=== PATIENT | male | born 1960 | race Caucasian/White ===

== ENCOUNTER 2016-06-16 20:31 | Emergency (ER) | payer BC ==
[2016-06-16] MEDS ORDERED: Diph,Pert(Acell),Tet Vac 0.5 ML SYR IM ONE (20:53)
[2016-06-16] MEDS ORDERED: AMOXICILLIN/POTASSIUM CLAV 875MG/125MG TABLET PO ONE (20:59)
--- NOTE | 2016-06-16 20:59 | Emergency Department Record ---
History of Present Illness - General Chief Complaint: Animal Bite Stated Complaint: DOG BITE Time Seen by Provider: 06/16/16 20:52 Source: Patient Mode of Arrival: Ambulatory Limitations: No limitations - History of Present Illness Initial Comments: 55 yo male presents to ED with a CC of a dog bite to the left forearm after attempting to separate tow dogs at home. Patient reports injury to the left forearm alone, denies other injury. Patient reports that dog's immunizations are UTD. Patient denies health problems at his baseline, reports tetanus is not currently UTD. Patient denies foreign collection clerk strength/thumb/finger weakness on examination. MD Complaint: Animal bite Onset/Timin -: Minutes(s) Left: Forearm Animal: Dog Description: Household pet Mechanism: Bite Context: Animals fighting Associated Symptoms: None - Related Data Patient Tetanus UTD (within 5 yrs): No Home Medications Medication Instructions Recorded Confirmed Last Taken Oxycodone HCl/Acetaminophen 1 tab PO Q4HR PRN 08/04/14 06/16/16 06/16/16 [Oxycodone-Acetaminophen 10-325] Oxycodone HCl [Roxicodone] 30 mg PO DAILY 03/22/16 06/16/16 06/16/16 Sertraline HCl [Zoloft] 40 mg PO DAILY 04/15/16 06/16/16 06/16/16 Previous Rx's Medication Instructions Recorded Amoxicillin/Potassium Clav 1 tab PO BID #19 tab 06/16/16 [Augmentin 875-125 Tablet] Allergies Allergy/AdvReac Type Severity Reaction Status Date / Time No Known Drug Allergies Allergy Verified 08/04/14 03:02 Travel Screening - Travel/Exposure Within Last 30 Days Have you traveled within the last 30 days?: No - Travel Symptoms Symptom Screening: None Review of Systems Constitutional: Denies: Chills, Fever, Malaise, Night sweats Eyes: Denies: Eye discharge, Eye pain, Photophobia ENT: Denies: Congestion, Ear pain, Epistaxis Respiratory: Denies: Cough, Dyspnea Cardiovascular: Denies: Chest pain, Dyspnea on exertion, Palpitations Endocrine: Denies: Fatigue, Heat or cold intolerance Gastrointestinal: Denies: Abdominal pain, Nausea, Vomiting Genitourinary: Denies: Hematuria, Incontinence Musculoskeletal: Denies: Arthralgia, Back pain Skin: Reports: Other (laceration left forearm). Denies: Bruising, Change in color, Change in hair/nails Neurological: Denies: Abnormal gait, Confusion, Headache, Seizure Psychiatric: Denies: Anxiety Hematological/Lymphatic: Denies: Anemia, Blood Clots Past Medical History - SOCIAL HISTORY Smoking Status: Never smoker - RESPIRATORY Hx Respiratory Disorders: No - CARDIOVASCULAR Hx Cardio Disorders: Yes Hx Cardiac Cath: Yes Hx Irregular Heartbeat: Yes (Bigeminy) - NEURO Hx Neuro Disorders: No - GI Hx GI Disorders: Yes Hx Reflux: Yes Comment:: Barretts Esophagus - Hx Genitourinary Disorders: No - ENDOCRINE Hx Endocrine Disorders: No - MUSCULOSKELETAL Hx Musculoskeletal Disorders: Yes Hx Musculoskeletal Disease: (L knee-current torn meniscus) Comment:: Degenerative Discs, Bulging Discs, Annular Tear - PSYCH Hx Psych Problems: Yes Hx Anxiety: Yes - HEMATOLOGY/ONCOLOGY Hx Hematology/Oncology Disorders: No Family Medical History Any Significant Family History?: Yes Hx Cancer: Grandparents Physical Exam - General General Appearance: Alert, Oriented x3, Cooperative, No acute distress Limitations: No limitations - Head Head exam: Atraumatic, Normocephalic, Normal inspection Head exam detail: negative: Abrasion, Contusion, Galicia's sign, General tenderness, Hematoma, Laceration - Eye Eye exam: Normal appearance. negative: Conjunctival injection, Periorbital swelling, Periorbital tenderness, Scleral icterus - ENT Ear exam: negative: Auricular hematoma, Auricular trauma Nasal Exam: negative: Active bleeding, Discharge, Dried blood, Foreign body Mouth exam: negative: Drooling, Laceration, Muffled voice, Tongue elevation - Neck Neck exam: Normal inspection. negative: Meningismus, Tenderness - Respiratory Respiratory exam: Normal lung sounds bilaterally. negative: Respiratory distress, Rhonchi, Stridor, Wheezes - Cardiovascular Cardiovascular Exam: Regular rate, Normal rhythm, Normal heart sounds - GI/Abdominal GI/Abdominal exam: Soft. negative: Rebound, Rigid, Tenderness - Rectal Rectal exam: Deferred - exam: Deferred - Extremities Extremities exam: Other (2.5 cm laceration to the lateral left forearm, no tendon injury is visible, foreign collection clerk strength 5/5, thumb FROM without weakness on examination). negative: Calf tenderness, Pedal edema - Back Back exam: Denies: CVA tenderness (R), CVA tenderness (L) - Neurological Neurological exam: Alert, Normal gait, Oriented X3. negative: Motor sensory deficit - Psychiatric Psychiatric exam: Normal affect, Normal mood - Skin Skin exam: Normal color. negative: Abrasion Type of lesion: negative: abrasion Course Vital Signs 06/16/16 20:45 Temperature 99.1 F Pulse Rate 99 H Respiratory 18 Rate Blood Pressure 178/110 Pulse Ox 94 L - Reevaluation(s) Reevaluation #1: 06/16/16 21:00 Procedure Note: Wound was anesthetized with 4 mL 1% Lidocaine with epi with good anesthesia, wound was irrigated extensively with 1000 mL sterile saltine under jet irrigation. No FB's were identified on examination of the wound, wound was closed with (4) 4-0 Prolene sutures using interrupted fashion. Ends were left loose given the mechanism of injury and chance of infection. Patient tolerated the procedure well without complications. Patient was counseled extensively on symptoms to return to ED for including redness, swelling, discharge, fever, or increased pain symptoms. Left Forearm X-ray: No radio-opaque FBs present, no fractures present. 06/16/16 21:40 Disposition Disposition: Discharge Clinical Impression: Dog bite of forearm Qualifiers: Encounter type: initial encounter Laterality: left Qualified Code(s): S51.852A - Open bite of left forearm, initial encounter Instructions: Animal Bite (ED) Additional Instructions: Return to ED if your symptoms worsen or if you have any concerns. Augmentin as directed. Follow-up with your family doctor in 3-5 days as directed Sutures out in 10 14 days. Prescriptions: Amoxicillin/Potassium Clav [Augmentin 875-125 Tablet] 1 tab PO BID #19 tab Forms: Patient Portal Access Time of Disposition: 20:59
--- NOTE | 2016-06-19 13:28 | RADIOLOGY REPORT ---
EXAM: LEFT FOREARM HISTORY: DOG BITE. TECHNIQUE: Three views of the left forearm were obtained. Comparison: None. Encounter: Initial. FINDINGS: Soft tissue injury of the proximal lateral aspect of the forearm and elbow. Linear moncho are noted along the proximal medial aspect of the forearm presumably relating to old surgery. No other evidence for radiopaque foreign body. No acute osseous abnormality. IMPRESSION: 1. SOFT TISSUE INJURY IN THE PROXIMAL LATERAL ASPECT OF THE FOREARM. NO ADJACENT OSSEOUS ABNORMALITY. 2. LINEAR METALLIC MONCHO OF THE PROXIMAL MEDIAL FOREARM PRESUMABLY RELATE TO PRIOR SURGERY. JOB NUMBER: [id number] [facility]
== END 2016-06-16 22:07 | disposition home or self-care (01) ==
LOC: ER 20:31
DX: S51.852A Open bite of left forearm, initial encounter (principal); W54.0XXA Bitten by dog, initial encounter; Y92.009 Unspecified place in unspecified non-institutional (private) residence as the place of occurrence of the external cause
CPT/HCPCS: 12001; 90715; 96372; 99283; 99284

== ENCOUNTER 2016-09-02 07:57 | Day surgery (SDC) | payer BC ==
--- NOTE | 2016-09-02 07:07 | History and Physical Report ---
CHIEF COMPLAINT/HISTORY OF CHIEF COMPLAINT: This patient presents with a history of intractable lumbar radiculitis. Due to the failure of all therapies he is here for a spinal opioid infusion trial to determine if the implantation of a permanent system can be of any value in his pain control. PAST MEDICAL HISTORY: Noncontributory. PAST SURGICAL HISTORY: None identified. MEDICATIONS ON ADMISSION: List to be provided. ALLERGIES: None. SOCIAL HISTORY: Caffeine. FAMILY HISTORY: Coronary artery disease. SYSTEMS REVIEW: The patient seems appropriate in no acute distress. The remainder of the systems review is noncontributory. PHYSICAL EXAMINATION: Height is 5'11", weight is 180. No vital signs. HEENT: Within normal limits. LUNGS: Clear. HEART: Regular rate and rhythm. ABDOMEN: Nontender. MUSCULOSKELETAL: Examination of the musculoskeletal system shows pain across the low back extending into the left leg. Ambulation - No assistive device utilized. NEUROLOGIC: Cranial nerves are intact. IMPRESSION: LUMBAR RADICULITIS, ICD10 CODE M54.16 AND M54.17. PLAN: This patient is here for an implanted spinal infusion trial with Hydromorphone to determine if the implantation of a permanent system can be of any value in his overall mcfp pain control. The procedure will involve a blood patch and this will require the patient to be flat for four hours and slowly elevated for one. The procedure will be considered outpatient although an overnight stay because of the blood patch will be evaluated. The potential risks, side effects and complications have been reviewed not only through us but through the information provided by the manager cardiac [facility]. This could include nerve root injury, spinal cord injury, and spinal headache. The patient understands and has agreed. ADELE MCGRAW D.O. Date & Time JOB NUMBER: [id number] MTDD
[~2016-09-02 07:57] MED LIST: ACETAMINOPHEN 1000MG/100 ML PREMIX IV ONE; CEFAZOLIN 2 Gram 50 ML IVPB ONE; FAMOTIDINE 20MG TABLET PO ONE; HYDROMORPHONE PF 2MG/ML AMP 0.004 MG in 0.9 % SODIUM CHLORIDE 10ML VIA 0.998 ML IV ONE; HYDROMORPHONE PF 2MG/ML AMP 2 MG in 0.9 % SODIUM CHLORIDE 500ML 499 ML IV ONE; MECLIZINE 25 MG TABLET PO ONE; METOCLOPRAMIDE 10 MG TABLET PO ONE
[2016-09-02] MEDS ORDERED: METOCLOPRAMIDE HCL 10 MG/2 ML VIAL IVP PRN (10:47)
[2016-09-02] MEDS ORDERED: AL HYDROX/MAG HYDROX 30ML UD PO PRN (10:47)
[2016-09-02] MEDS ORDERED: DIPHENHYDRAMINE HCL IV 50 MG/ML VIAL IVP PRN ×2 (10:47)
[2016-09-02] MEDS ORDERED: HYDROMORPHONE HCL 2 MG/ML VIAL IM PRN (10:47)
[2016-09-02] MEDS ORDERED: ACETAMINOPHEN 325 MG TAB PO PRN ×2 (10:47)
[2016-09-02] MEDS ORDERED: OXYCODONE/APAP 10MG-325MG TABLET PO PRN ×2 (10:47)
[2016-09-02] MEDS ORDERED: TEMAZEPAM 15 MG CAPSULE PO PRN ×2 (10:47)
[2016-09-02] MEDS ORDERED: DIPHENHYDRAMINE HCL 25 MG CAPSULE PO PRN ×2 (10:47)
[2016-09-02] MEDS ORDERED: METOCLOPRAMIDE 10 MG TABLET PO PRN (10:47)
[2016-09-02] MEDS ORDERED: SENNOSIDES/DOCUSATE SODIUM UD CAPSULE PO PRN ×2 (10:47)
[2016-09-02] MEDS ORDERED: HYDROMORPHONE HCL 1 MG/ML CPJ IM PRN (10:47)
[2016-09-02] MEDS ORDERED: NALOXONE 0.4 MG/1 ML VIAL IVP PRN (10:47)
[2016-09-02] MEDS ORDERED: HYDROCODONE/APAP 7.5/325MG TABLET PO PRN ×2 (10:47)
[2016-09-02] MEDS ORDERED: RANITIDINE HCL 150 MG TABLET PO SCH (11:00)
[2016-09-02] MEDS ORDERED: SERTRALINE HCL 50 MG TABLET PO SCH (11:00)
[2016-09-02] MEDS: RINGERS SOLUTION,LACTATED 1,000 ML IV SCH ×2 (12:49→16:58)
[2016-09-02] MEDS ORDERED: HYDROMORPHONE HCL 2 MG/ML VIAL IV ONE ×2 (12:56→14:52)
[2016-09-02] MEDS ORDERED: LIDOCAINE 1% W/EPI 1:200,000 MPF 30ML SQ ONE (12:56)
[2016-09-02] MEDS ORDERED: CEFAZOLIN 1G VIAL IM ONE (12:56)
[2016-09-02] MEDS ORDERED: BUPIVACAINE 0.5% W/EPI MPF 30 ML VIAL IVP ONE (12:56)
[2016-09-02] MEDS ORDERED: LIDOCAINE 2% MDV (20MG/ML) 20ML VIAL IV ONE (14:52)
[2016-09-02] MEDS ORDERED: MIDAZOLAM HCL 2MG/2ML VIAL IV ONE (14:52)
[2016-09-02] MEDS ORDERED: PROPOFOL 10 MG/ML VIAL IV ONE (14:52)
[2016-09-02] MEDS ORDERED: FENTANYL PF 100MCG/2ML VIAL IV ONE (14:52)
[2016-09-02] MEDS ORDERED: CEFAZOLIN 2 Gram 50 ML IVPB SCH (17:00)
--- NOTE | 2016-09-02 17:12 | Operative Note - Ferro ---
DATE OF SURGERY: 09/02/16 PREOPERATIVE DIAGNOSIS: INTRACTABLE LUMBAR RADICULITIS, ICD-10 CODE = M54.16 AND M54.17. OPERATION: 1. FLUOROSCOPICALLY-GUIDED ACCESS SPINAL SPACE AT L3/4, PLACEMENT OF THIN- WALLED SPINAL CATHETER UPPER ENDPLATE L1. 2. DIAGNOSTIC MYELOGRAPHY WITH RADIOLOGIC SUPERVISION AND INTERPRETATION. 3. SPINAL OPIOID BOLUS HYDROMORPHONE 0.002 MG SPINAL SPACE. 4. INCISION, SUBCUTANEOUS DISSECTION, AND ANCHORING OF CATHETER TO SUPRASPINOUS FASCIA USING ANCHORING DEVICE AND NONABSORBABLE SUTURE. 5. INCISION, SUBCUTANEOUS DISSECTION, AND CREATION OF SUBCUTANEOUS POUCH AT LEFT POSTERIOR/SUPERIOR GLUTEAL MARGIN EVENTUALLY FOR PLACEMENT OF PUMP. 6. TUNNELING BETWEEN MIDLINE POUCH INTO POSTERIOR GLUTEAL POUCH TUNNELING SPINAL CATHETER INTO POUCH. 7. RESECTING SPINAL CATHETER WITH SECOND CATHETER COMPONENT BY WAY OF CONNECTOR TUNNELING SECONDARY CATHETER COMPONENT SUPERIOR EXITING SKIN 6 CM. 8. INTERFACE EXTERNAL CATHETER TO EXTERNAL INFUSION DEVICE SET TO DELIVER HYDROMORPHONE AT 0.05 MG PER DAY. 9. CLOSURE OF MIDLINE INCISION, VICRYL FOR FASCIA, RUNNING SUBCUTICULAR VICRYL FOR SKIN. CLOSURE OF LEFT POSTERIOR GLUTEAL POUCH USING NYLON SUTURE. 10. EPIDURAL BLOOD PATCH AT L4/5, 18-GAUGE TUOHY NEEDLE [id number] WITH 20 ML AUTOLOGOUS BLOOD DRAWN STERILE TECHNIQUE, LEFT ANTECUBITAL. 11. DRESSINGS PLACED SECURING CATHETER AND ALL CONNECTIONS UNDER STERILE DRESSING. PATIENT TRANSPORTED TO RECOVERY ROOM FLAT, PILLOW UNDER HEAD AND KNEES , STABLE SHOWING NO SIDE-EFFECTS FROM THE PROCEDURE OR THE SEDATION. SURGEON: ADELE MCGRAW D.O. ANESTHESIA: LOCAL SEDATION. ANESTHESIA PROVIDER: ELLIS HIGGINBOTHAM CRNA. INDICATION: This patient presents with a history of intractable lumbar radiculitis. Due to the failure of all therapies, he is here for a spinal opioid infusion trial to determine if the implantation of a permanent system canal be of any value in pain control. In implanted catheter technique will be utilized to minimize the incidence of spinal headaches, improving overall ability to evaluate procedure as well as to simply the process going from trial to permanent. PROCEDURE: Intravenous line, vital sign monitoring, IV sedation, prepped, draped sterile technique. Under imaging, the spinal interspace at L3/4 was marked, infiltrated, and a 20-gauge spinal needle using AP and lateral imaging positioned in the spinal space. With CSF flow, a thin-walled spinal catheter was advanced positioned L1. Diagnostic myelography was performed; the resulting flow characteristics showed the spinal catheter, which initially appeared to be upper endplate at L1, to be lower endplate and midbody L1. 1 mL of Hydromorphone equal to 0.002 mg was given into the spinal space. The catheter was clamped to limit CSF loss. The skin above and below the needle infiltrated, incision made, and subcutaneous dissection was conducted to the supraspinous fascia. The needle was removed and a catheter was anchored to the supraspinous fascia using an anchoring device and nonabsorbable suture. At the left posterior gluteal margin or a site picked by the patient eventually for placement of the pump itself, skin infiltrated, incision made, and subcutaneous dissection was conducted to form a small subcutaneous pouch. The catheter was then tunneled into the pouch. Once in the pouch, the catheter was interfaced and revised by way of a connector interfacing to a second catheter component. The secondary catheter component was then tunneled superior 6 cm from this pouch exiting the skin. The externalized catheter was interfaced to an external pump, which was set to deliver by continuous infusion Hydromorphone at 0.05 mg per day. Antibiotic irrigation and Bovie for hemostasis. The midline incision was closed with Vicryl for fascia, running subcuticular Vicryl for skin. The posterior pouch incision was closed with nylon suture. At the epidural interspace L4/5, skin infiltrated then an 18-gauge Tuohy needle with loss-of- resistance into the epidural space. Simultaneously, 20 mL autologous blood drawn sterile technique and then an epidural blood patch was performed at this level with this blood maintaining sterility. Needle removed. The dressings were then placed securing the catheter and all connections under sterile dressing. He was then turned supine, pillow under head and knees flat, and transported to the Recovery Room stable showing no side-effects from the procedure or the sedation. He will stay flat for four hours, slowly elevated for one, and then be kept for the remainder of the day for observation and overnight. He will be discharged in the morning. DISCHARGE INSTRUCTIONS: 1. The sites will remain clean and dry. No showering or bathing in any way that would disrupt dressings. If it happens, contact the clinic. 2. Standard medications resumed including the antibiotic, Levaquin, 500 mg once a day for 14 days. 3. Spinal opioid side-effects including respiratory depression, nausea, vomiting , constipation, urinary retention, lightheadedness or rash have all been discussed and reviewed. If it takes place, he should contact the clinic. Any headache, which may occur, he is to increase fluid intake, caffeinated beverages , stay flat until the headache resolves then slowly increase activities. He will be seen in the office for possible increases in infusion in the next three days. All other instructions provided, numbers to contact, problems given. He will be evaluated and discharged. ADELE MCGRAW D.O. Date & Time cc: Dr. Moe Caldwell JOB NUMBER: [id number] MTDD
== END 2016-09-02 18:45 | disposition home or self-care (01) ==
LOC: SUR 07:57 → MEDSURG 10:42 → SUR 18:45
PROVIDERS: ATTEND Pain Medicine Interventional Pain Medicine
DX: M54.16 Radiculopathy, lumbar region (principal); M54.17 Radiculopathy, lumbosacral region; R00.8 Other abnormalities of heart beat
CPT/HCPCS: 72020; 62350; 00630; Q9967; J3010; J1170 ×2; J0690; J7040; J7120

== ENCOUNTER 2016-09-16 09:07 | Day surgery (SDC) | payer BC ==
[~2016-09-16 09:07] MED LIST changes: +HYDROMORPHONE HCL 0.02 GM in 0.9 % SODIUM CHLORIDE 10ML VIA 20 ML IV ONE; +HYDROMORPHONE HCL/PF 0.002 MG in 0.9 % SODIUM CHLORIDE 10ML VIA 0.998 ML IVP ONE; -HYDROMORPHONE PF 2MG/ML AMP 0.004 MG in 0.9 % SODIUM CHLORIDE 10ML VIA 0.998 ML IV ONE; -HYDROMORPHONE PF 2MG/ML AMP 2 MG in 0.9 % SODIUM CHLORIDE 500ML 499 ML IV ONE
--- NOTE | 2016-09-16 09:52 | History and Physical Report ---
CHIEF COMPLAINT/HISTORY OF CHIEF COMPLAINT: This patient with a history of intractable lumbar radiculitis has an implanted spinal catheter infusion trial with Hydromorphone ongoing. He has achieved up to 75+% pain control and is here for permanent implant of the device based upon his request. PAST MEDICAL HISTORY: Unchanged. PAST SURGICAL HISTORY: Unchanged. MEDICATIONS ON ADMISSION: List to be provided. ALLERGIES: None. SOCIAL HISTORY: Caffeine. FAMILY HISTORY: Coronary artery disease. SYSTEMS REVIEW: The patient is appropriate in no acute distress. The remainder of the systems review is noncontributory. PHYSICAL EXAMINATION: Height 5'11", weight 190. Vital signs are not available. HEENT: Within normal limits. LUNGS: Clear. HEART: Regular rate and rhythm. ABDOMEN: Nontender. MUSCULOSKELETAL: Examination of the musculoskeletal system shows the external dressing for the implanted catheter trial all in place. The externalized catheter to the external pump in place. Sensory garcia are intact. NEUROLOGIC: Cranial nerves are intact. IMPRESSION: 1. LUMBAR RADICULITIS, ICD10 CODE M54.16 AND M54.17. 2. IMPLANTED SPINAL CATHETER INFUSION TRIAL WITH HYDROMORPHONE. PLAN: The patient is here for full implant of the pump itself and removal of the external components. The procedure will be considered outpatient and an overnight stay will be evaluated. ADELE MCGRAW D.O. Date & Time JOB NUMBER: [id number] MTDD
[2016-09-16] MEDS ORDERED: LIDOCAINE 2% MDV (20MG/ML) 20ML VIAL IV ONE (14:00)
[2016-09-16] MEDS ORDERED: FENTANYL PF 100MCG/2ML VIAL IV ONE (14:00)
[2016-09-16] MEDS ORDERED: MIDAZOLAM HCL 2MG/2ML VIAL IV ONE (14:00)
[2016-09-16] MEDS ORDERED: PROPOFOL 10 MG/ML VIAL IV ONE (14:00)
[2016-09-16] MEDS ORDERED: HYDROMORPHONE HCL 2 MG/ML VIAL IV ONE ×2 (14:00→14:40)
[2016-09-16] MEDS ORDERED: OXYCODONE/APAP 10MG-325MG TABLET PO ONE (14:40)
[2016-09-16] MEDS ORDERED: LIDOCAINE 1% W/EPI 1:200,000 MPF 30ML SQ ONE (14:40)
[2016-09-16] MEDS ORDERED: BUPIVACAINE 0.5% W/EPI MPF 30 ML VIAL IVP ONE (14:40)
[2016-09-16] MEDS ORDERED: CEFAZOLIN 1G VIAL IM ONE (14:40)
--- NOTE | 2016-09-16 16:01 | Operative Note - Ferro ---
DATE OF SURGERY: 09/16/16 PREOPERATIVE DIAGNOSES: 1. INTRACTABLE LUMBAR RADICULITIS, ICD-10 CODE = M54.16 AND M54.17. 2. IMPLANTED SPINAL OPIOID INFUSION CATHETER SYSTEM WITH HYDROMORPHONE. OPERATION: 1. INCISION, SUBCUTANEOUS DISSECTION, AND REMOVAL OF EXTERNALIZED SPINAL CATHETER. 2. INCISION, SUBCUTANEOUS DISSECTION, AND CREATION OF SUBCUTANEOUS POUCH AT LEFT FLANK FOR PLACEMENT OF PUMP IDENTIFIED MED[employer] PROGRAMMABLE 20 ML FILLED HYDROMORPHONE 1 MG PER ML. 3. INCISION, SUBCUTANEOUS DISSECTION, AND REVISION OF INDWELLING SPINAL CATHETER INTERFACED TO SECOND CATHETER COMPONENT BY WAY OF CONNECTOR. 4. TUNNELING BETWEEN CATHETER POUCH AND PUMP POUCH AT LEFT FLANK. PLACEMENT OF EXTERNAL PORTION OF REVISED CATHETER TO PUMP POUCH INTERFACED TO PUMP. 5. PLACEMENT OF PUMP INTO POUCH SECURING TO POSTERIOR FASCIA USING NONABSORBABLE SUTURE, TWO POINTS PUMP EYELETS. 6. ASPIRATION 1 ML CATHETER CONTENTS CLEARING CATHETER OF OPIOID AND CSF MIXTURE THROUGH ACCESS PORT. 7. DIAGNOSTIC MYELOGRAPHY WITH RADIOLOGIC SUPERVISION INTERPRETATION CONFIRMING PATENCY AND FUNCTIONALITY OF NEW PUMP AND CATHETER. 8. PLACEMENT OF PUMP INTO POUCH. CLOSURE OF INCISION VICRYL FOR FASCIA, RUNNING SUBCUTICULAR VICRYL FOR SKIN. CLOSURE OF CATHETER INCISION VICRYL FOR FASCIA, SUBCUTICULAR VICRYL FOR SKIN. DERMABOND CLOSURE SYSTEM OVER BOTH INCISIONS. 9. PROGRAMMING OF PUMP TO DELIVER BY CONTINUOUS INFUSION HYDROMORPHONE AT 0.18 MG PER DAY. SURGEON: ADELE MCGRAW D.O. ANESTHESIA: LOCAL SEDATION. ANESTHESIA PROVIDER: ELLIS HIGGINBOTHAM CRNA INDICATION: This patient presents with a history of intractable lumbar radiculitis with an ongoing implanted spinal catheter infusion system Hydromorphone. Due to the failure of all therapies and the success of the ongoing catheter trial, he presents today by his request for implantation of full systems. This will involve moving the externalized component. PROCEDURE: Intravenous line, vital sign monitoring, IV sedation, prepped, draped, sterile technique. Under imaging, the site picked by the patient for the pump at the left flank infiltrated, incision made, and subcutaneous dissection was conducted to form a pouch of suitable size and depth. The previous incisional site at the posterior gluteal margin for the interface between indwelling and external catheter was infiltrated, incision made, and subcutaneous dissection was conducted to the catheter interface. The external catheter component was cut and then removed by pulling away from the incision. The indwelling spinal catheter was then revised and resected with a second catheter component by way of a connector. This catheter component was tunneled up into the flank pouch. A new pump placed onto the field filled with Hydromorphone at 1 mg per mL. The revised catheter was then interfaced to the pump. Antibiotic irrigation. Bovie for hemostasis. The pump was then placed into the pouch and secured to the posterior fascia using nonabsorbable suture two points pump eyelets. A 24-gauge Admae needle was then inserted into the access port and 1 mL of catheter contents was aspirated clearing the catheter of opioid and CSF mixture. Diagnostic myelography was then performed the resulting flow characteristics identified full integrity of the pump with the new revised catheter component, tip of the catheter identified L1. Functionality noted. Antibiotic irrigation and Bovie for hemostasis at both incisional sites. Both incisions were then closed Vicryl for fascia and running subcuticular Vicryl for skin. Dermabond closure system was placed. The pump was programmed to deliver by continuous infusion Hydromorphone at 0.18 mg per day. He was transported to the Recovery Room stable showing no side-effects from the procedure or the sedation. When fully awake and alert, he was transported to the back of the Recovery Area, monitored, then prepared for discharge. DISCHARGE INSTRUCTIONS: 1. The sites will remain clean and dry. No showering or bathing in any way that would disrupts dressing. If it happens, contact the clinic. 2. Standard medications resumed including Levaquin, the antibiotic, 500 mg once a day for another 10 days. He has already been on the antibiotic. 3. Spinal opioid side-effects including respiratory depression, nausea, vomiting , constipation, urinary retention, light headedness, or rash have all been discussed and reviewed. He will be seen in the office in 5-7 days to check the incisions. Until then, he is to keep his activity levels down. ADELE MCGRAW D.O. Date & Time cc: Dr. Garay JOB NUMBER: [id number] MTDD
== END 2016-09-16 12:30 | disposition home or self-care (01) ==
LOC: SUR 09:07
PROVIDERS: ATTEND Pain Medicine Interventional Pain Medicine
DX: M54.16 Radiculopathy, lumbar region (principal); M54.17 Radiculopathy, lumbosacral region
CPT/HCPCS: 62367; 72020; 62350; 62362; 00630; Q9967; J1170 ×2; J3010; J0690; C1755

== ENCOUNTER 2017-01-14 09:55 | Day surgery (SDC) | payer BC ==
[~2017-01-14 09:55] MED LIST changes: +ACETAMINOPHEN 1,000 MG/100 ML BTL IV ONE; -ACETAMINOPHEN 1000MG/100 ML PREMIX IV ONE; -CEFAZOLIN 2 Gram 50 ML IVPB ONE; -FAMOTIDINE 20MG TABLET PO ONE; -HYDROMORPHONE HCL 0.02 GM in 0.9 % SODIUM CHLORIDE 10ML VIA 20 ML IV ONE; -HYDROMORPHONE HCL/PF 0.002 MG in 0.9 % SODIUM CHLORIDE 10ML VIA 0.998 ML IVP ONE; -MECLIZINE 25 MG TABLET PO ONE; -METOCLOPRAMIDE 10 MG TABLET PO ONE
[2017-01-14] MEDS ORDERED: OXYCODONE HCL/APAP 5MG/325MG TABLET PO ONE (14:33)
[2017-01-14] MEDS ORDERED: BUPIVACAINE 0.25% W/EPI MPF 30ML VIAL IVP ONE (14:33)
[2017-01-14] MEDS ORDERED: MIDAZOLAM HCL 2MG/2ML VIAL IV ONE (14:38)
[2017-01-14] MEDS ORDERED: PROPOFOL 10 MG/ML VIAL IV ONE (14:38)
[2017-01-14] MEDS ORDERED: SEVOFLURANE 250 ML INH ONE (14:38)
[2017-01-14] MEDS ORDERED: LIDOCAINE 2% MDV (20MG/ML) 20ML VIAL IV ONE (14:38)
--- NOTE | 2017-01-18 12:50 | Operative Note ---
DATE OF SURGERY: 01/14/2017 Surgeon: Vijay Fernandes DO PREOPERATIVE DIAGNOSES: 1. Torn medial and lateral meniscus of the left knee. 2. Chondromalacia of the left knee. POSTOPERATIVE DIAGNOSES: 1. Torn medial and lateral meniscus of the left knee. 2. Chondromalacia of the patella, trochlea, and medial femoral condyle, left knee. 3. Medial mid patella plica, left knee. OPERATION: 1. Arthroscopic partial medial and lateral meniscectomy, left knee. 2. Arthroscopic resection of medial mid patella plica, left knee. 3. Arthroscopic chondroplasty of medial femoral condyle of trochlea and patella, left knee. DESCRIPTION OF PROCEDURE: This 56-year-old male was taken to the operating room and placed in the supine position on the operating room table. A general anesthetic was administered and the left lower extremity was elevated. It was exsanguinated and the tourniquet inflated to 300 mmHg. Arthroscopic knee lyle applied. Left knee prepped with Hibiclens and draped in the usual sterile fashion. An inferolateral portal was established for the 4 mm arthroscope, and initial evaluation of the joint demonstrated advanced degenerative disease of the patella. In addition, severe grade 3 changes noted of the trochlea. There was a medial mid patella plica as well. An inferomedial portal was established, and further inspection and probing of the patella revealed unstable fragments of articular cartilage mostly on the medial facet. Chondroplasty was performed to restore stability. There was severe grade 3 change noted in the center of the trochlea with fraying of the articular cartilage on either end. It was approximately 1.5 cm wide and 2 cm in length and chondroplasty was performed to stabilize the remaining articular cartilage. Resection of the medial mid patella plica was also performed. Scanning the medial and lateral gutters demonstrated loose joint bodies present in the medial gutter, and these were articular cartilage fragments. These were evacuated from the joint. The medial compartment was entered and grade 2 chondromalacia of the medial femoral condyle was present. Loose fragments of articular cartilage were present there was well, and chondroplasty was performed. The patient's medial meniscus demonstrated a complex tear. There was a radial tear at about the 10-o'clock position and then complex horizontal cleavage components at about the 12-o'clock position. The undersurface of the medial meniscus demonstrated severe degeneration and tearing, and this was resected using the basket forceps and rotating shaver. This patient previously had had an arthroscopic surgery by another physician. I could not see where any attempt had been made to perform medial meniscectomy. We resected back to the apex of the tear which was approximately at the 12-o'clock position, and a small radial component at about the 10-o'clock position was also incorporated to form a smooth contoured surface after we resected the torn fragments. After completion, there was a very little rim left posteriorly, only about 1-2 mm, but this was stable and it was probed and confirmed to be so. We then used the basket forceps and rotating shaver to further smooth and contour both in a medial and lateral direction to have a smooth stable meniscus, which was probed and confirmed to be stable. The intercondylar notch was examined and found to be normal. The lateral compartment was entered and no articular cartilage defects were present in the lateral compartment but there was tearing of the lateral meniscus as well, a radial tear at about the 3-o'clock position and degenerative-type tear present to about the 12-o'clock position. From about the 12-o'clock position around to approximately the 4-o'clock position, we used a basket forceps and rotating shaver to resect unstable fragments of the meniscus. Approximately 4 mm of meniscus at the 2- to 3-o'clock position had been resected and then tapered in each direction to arrive at a smooth contoured surface. This was probed and confirmed to be stable. The joint was then copiously irrigated and suctioned and all areas were reexamined. No additional findings were present. The joint was suctioned. The instruments were removed. The portals infiltrated with 0.25% Marcaine with epinephrine. The portals were sutured with 4-0 nylon suture. Sterile dressings applied. Tourniquet and knee lyle released and the patient taken to the recovery room in satisfactory condition. GROSS PATHOLOGY: This patient demonstrated tears of both the medial and lateral meniscus. I could not see any evidence at previous attempt at either medial or lateral meniscectomy from previous surgery. There was grade 3 chondromalacia of the trochlea, grade 2 chondromalacia of the medial facet of the patella, a medial mid patella plica, and grade 2 chondromalacia of the medial femoral condyle. [facility]
== END 2017-01-14 13:05 | disposition home or self-care (01) ==
LOC: SUR 09:55
PROVIDERS: ATTEND Orthopaedic Surgery
DX: S83.272A Complex tear of lateral meniscus, current injury, left knee, initial encounter (principal); S83.232A Complex tear of medial meniscus, current injury, left knee, initial encounter; M67.52 Plica syndrome, left knee; M22.42 Chondromalacia patellae, left knee